=== PATIENT | female | born 1950 | race African-American/Black ===

== ENCOUNTER 2018-05-09 09:40 | Day surgery (SDC) | payer MEDICARE, OTHER ==
[2018-05-08 14:02] VITALS: BMI 36.6
[~2018-05-09 09:40] MED LIST: ACETAMINOPHEN 325 MG TABLET (FP) PO PRN; CIPROFLOXACIN HCL 0.3% OPHTH 2.5ML BOTTLE OP SCH; EPINEPHrine/PF 1 MG/1 ML (1:1,000) AMPULE SQ ONE; TRYPAN BLUE 0.5 ML DISP.SYRIN IO ONE
[2018-05-09] MEDS ORDERED: OFLOXACIN 0.3% OPHTHALMIC SOLUTION 5 ML BOTTLE ONE (09:43)
[2018-05-09] MEDS ORDERED: FLURBIPROFEN 0.03% OPHTH SOLN 2.5 ML BOTTLE ONE (09:43)
[2018-05-09] MEDS ORDERED: CYCLOPENTOLATE HCL 1% OPHTH SOLN 2 ML BOTTLE ONE (09:43)
[2018-05-09] MEDS ORDERED: TROPICAMIDE 1% OPHTH SOLN 15 ML BOTTLE ONE (09:44)
[2018-05-09] MEDS ORDERED: PHENYLEPHRINE 2.5% OPHTH SOLN 15 ML BOTTLE ONE (09:44)
[2018-05-09] MEDS: FLURBIPROFEN 0.03% OPHTH SOLN 2.5 ML BOTTLE OP SCH ×3 (10:00→10:10)
[2018-05-09] MEDS: PHENYLEPHRINE 2.5% OPHTH SOLN 15 ML BOTTLE OP SCH ×3 (10:00→10:10)
[2018-05-09] MEDS: CYCLOPENTOLATE HCL 1% OPHTH SOLN 2 ML BOTTLE OP SCH ×3 (10:00→10:10)
[2018-05-09] MEDS: OFLOXACIN 0.3% OPHTHALMIC SOLUTION 5 ML BOTTLE OP SCH ×3 (10:00→10:10)
[2018-05-09] MEDS: TROPICAMIDE 1% OPHTH SOLN 15 ML BOTTLE OP SCH ×3 (10:00→10:10)
[2018-05-09] MEDS ORDERED: MIDAZOLAM HCL 2 MG/2 ML SINGLE DOSE VIAL ONE (10:37)
[2018-05-09] MEDS ORDERED: TETRACAINE 0.5% OPHTH SOLN 2 ML BOTTLE TP ONE (11:00)
[2018-05-09] MEDS ORDERED: LIDOCAINE HCL 1% PRESERVATIVE FREE - 30ML VIAL IO ONE (11:09)
[2018-05-09] MEDS ORDERED: CHONDROITIN SU A/HYALUR SOD 1 KIT IO ONE (11:10)
[2018-05-09] MEDS ORDERED: EPINEPHrine/PF 1 MG/1 ML (1:1,000) AMPULE SQ ONE (11:15)
[2018-05-09] MEDS ORDERED: CHONDROITIN SU A/HYALUR SOD 1 KIT ONE (11:39)
[2018-05-09] MEDS ORDERED: ACETAMINOPHEN 325 MG TABLET (FP) ONE (11:45)
--- NOTE | 2018-05-09 11:47 | SPEC ---
DATE OF SURGERY: 05/09/2018 OPERATION: Phacoemulsification with posterior chamber intraocular lens implantation, right eye. Lens used [id number], 23.0 Diopter power, Serial No. [id number]. PREOPERATIVE DIAGNOSIS: Cataract, right eye. POSTOPERATIVE DIAGNOSIS: Cataract, right eye. SURGEON: Cindi Cho M.D. ANESTHESIA: Topical MAC. COMPLICATIONS: None. PROCEDURE: The patient was brought to the operating room and correctly identified along with the operative site and the correct intraocular lens donaldson. The patient was then prepped and draped in the usual sterile fashion including 5% Betadine solution in the conjunctival sac and an eyelid drape. An eyelid speculum was then placed in the eye. A paracentesis port was created and approximately 0.5 mL of preservative free Lidocaine was then injected into the eye. Viscoelastic was then injected to inflate the anterior chamber. A temporal clear corneal wound was created. A continuous circular capsulorrhexis was performed. The nucleus was then hydrodissected with BSS and removed with phacoemulsification. The remaining cortical material was irrigated and aspirated. Viscoelastic was injected to inflate the capsular bag and the intraocular lens was then implanted into the capsular bag. The remaining Viscoelastic was irrigated and aspirated from the eye. The IOL was noted to be well centered and completely covered by the anterior capsulorrhexis. Topical vancomycin was placed and the eye patched and shielded. All wounds were tested and found to be watertight. No suture was placed. The eye was then shielded. The patient was then discharged from the operating room in stable condition. CINDI CHO M.D. [id number]
[2018-05-09 12:02] VITALS: TEMP 98.2
[2018-05-09 12:29] VITALS: BP 140/67; PULSE 62
== END 2018-05-09 12:35 | disposition home or self-care (01) ==
LOC: JASU-SURG 09:40
PROVIDERS: ATTEND Ophthalmology
PROC: 08RJ3JZ Replacement of Right Lens with Synthetic Substitute, Percutaneous Approach (ICD-10-PCS; principal; 2018-05-09 11:00)
DX: H26.9 Unspecified cataract (principal)

== ENCOUNTER 2018-05-23 09:30 | Day surgery (SDC) | payer MEDICARE ==
[2018-05-22 14:31] VITALS: BMI 36.6
[~2018-05-23 09:30] MED LIST changes: -CIPROFLOXACIN HCL 0.3% OPHTH 2.5ML BOTTLE OP SCH; -EPINEPHrine/PF 1 MG/1 ML (1:1,000) AMPULE SQ ONE; -TRYPAN BLUE 0.5 ML DISP.SYRIN IO ONE
[2018-05-23] MEDS ORDERED: CYCLOPENTOLATE HCL 1% OPHTH SOLN 2 ML BOTTLE ONE (09:58)
[2018-05-23] MEDS ORDERED: FLURBIPROFEN 0.03% OPHTH SOLN 2.5 ML BOTTLE ONE (09:58)
[2018-05-23] MEDS ORDERED: OFLOXACIN 0.3% OPHTHALMIC SOLUTION 5 ML BOTTLE ONE (09:58)
[2018-05-23] MEDS ORDERED: TROPICAMIDE 1% OPHTH SOLN 15 ML BOTTLE ONE (09:59)
[2018-05-23] MEDS ORDERED: PHENYLEPHRINE 2.5% OPHTH SOLN 15 ML BOTTLE ONE (09:59)
[2018-05-23] MEDS: CYCLOPENTOLATE HCL 1% OPHTH SOLN 2 ML BOTTLE OP SCH ×3 (10:00→10:31)
[2018-05-23] MEDS: FLURBIPROFEN 0.03% OPHTH SOLN 2.5 ML BOTTLE OP SCH ×3 (10:00→10:31)
[2018-05-23] MEDS: TROPICAMIDE 1% OPHTH SOLN 15 ML BOTTLE OP SCH ×3 (10:00→10:31)
[2018-05-23] MEDS: OFLOXACIN 0.3% OPHTHALMIC SOLUTION 5 ML BOTTLE OP SCH ×3 (10:00→10:31)
[2018-05-23] MEDS: PHENYLEPHRINE 2.5% OPHTH SOLN 15 ML BOTTLE OP SCH ×3 (10:00→10:31)
[2018-05-23] MEDS ORDERED: MIDAZOLAM HCL 2 MG/2 ML SINGLE DOSE VIAL ONE (11:02)
[2018-05-23] MEDS ORDERED: TETRACAINE 0.5% OPHTH SOLN 2 ML BOTTLE TP ONE (11:06)
[2018-05-23] MEDS ORDERED: LIDOCAINE HCL 1% PRESERVATIVE FREE - 30ML VIAL IO ONE (11:16)
[2018-05-23] MEDS ORDERED: CHONDROITIN SU A/HYALUR SOD 1 KIT IO ONE (11:17)
[2018-05-23] MEDS ORDERED: EPINEPHrine/PF 1 MG/1 ML (1:1,000) AMPULE SQ ONE (11:22)
[2018-05-23] MEDS ORDERED: CHONDROITIN SU A/HYALUR SOD 1 KIT ONE (12:05)
--- NOTE | 2018-05-23 12:05 | SPEC ---
DATE OF OPERATION: DATE OF DICTATION: 05/23/2018 PREOPERATIVE DIAGNOSIS: Cataract, left eye. POSTOPERATIVE DIAGNOSIS: Cataract, left eye. OPERATION: Phacoemulsification of left cataract with posterior chamber intraocular lens implantation, the lens used SN60WF, 22.5-diopter power, serial number [id number]. SURGEON: Cindi Cho MD ANESTHESIA: Topical, MAC. COMPLICATIONS: None. PROCEDURE: The patient was brought to the operating room and correctly identified along with the operative site and the correct intraocular lens donaldson. The patient was then prepped and draped in the usual sterile fashion including 5% Betadine solution in the conjunctival sac and an eyelid drape. An eyelid speculum was then placed in the eye. A paracentesis port was created and approximately 0.5 mL of preservative-free lidocaine was then injected into the eye. Viscoelastic was then injected to inflate the anterior chamber. A temporal clear corneal wound was created. A continuous circular capsulorrhexis was performed. The nucleus was then hydrodissected with BSS and removed with phacoemulsification. The remaining cortical material was irrigated and aspirated. Viscoelastic was injected to inflate the capsular bag and the intraocular lens was then implanted into the capsular bag. The remaining viscoelastic was irrigated and aspirated from the eye. The IOL was noted to be well centered and completely covered by the anterior capsulorrhexis. Topical vancomycin was placed and the eye patched and shielded. All wounds were tested and found to be watertight. No suture was placed. The eye was then shielded. The patient was then discharged from the operating room in stable condition. CINDI CHO M.D. [id number]
[2018-05-23 12:25] VITALS: BP 143/70; TEMP 98.2
[2018-05-23 12:43] VITALS: PULSE 65
== END 2018-05-23 12:45 | disposition home or self-care (01) ==
LOC: JASU-SURG 09:30
PROVIDERS: ATTEND Ophthalmology
PROC: 08RK3JZ Replacement of Left Lens with Synthetic Substitute, Percutaneous Approach (ICD-10-PCS; principal; 2018-05-23 11:00)
DX: H26.9 Unspecified cataract (principal)

== ENCOUNTER 2025-04-21 12:06 | Emergency (ER) | payer OTHER ==
[2025-04-21 12:16] VITALS: RESP 17; TEMP 98.6; BMI 28.5
[2025-04-21 13:19] LABS: ABSOLUTE IMMATURE GRANULOCYTES 0.04 x10^3/uL (0.0-0.031); BASOPHILS # 0.08 x10^3/uL (0.01-0.08); EOSINOPHIL % 3.7 % (0.7-5.8); EOSINOPHILS # 0.38 x10^3/uL (0.04-0.36); HEMATOCRIT 29.7 % (34.1-44.9); MCHC 33.7 g/dl (32.2-35.5); MEAN CELL VOLUME 89.2 fl (79.4-94.8); MEAN PLT VOLUME 9.9 fl (9.4-12.3); MONOCYTE # 1.16 x10^3/uL (0.24-0.86); MONOCYTE % 11.3 % (4.7-12.5); PLATELET COUNT 498 x10^3/uL (182-369); RDW 13.4 % (12.4-16.6)
[2025-04-21 13:31] LABS: URINE APPEARANCE CLEAR; URINE BILIRUBIN NEGATIVE (NEGATIVE); URINE COLOR YELLOW; URINE GLUCOSE (UA) NEGATIVE (NEGATIVE); URINE KETONE NEGATIVE (NEGATIVE); URINE LEUK ESTERASE NEGATIVE (NEGATIVE); URINE NITRITE NEGATIVE (NEGATIVE); URINE PROTEIN NEGATIVE (NEGATIVE); URINE UROBILINOGEN 0.2 mg/dL (0.2-1.0)
[2025-04-21 13:37] LABS: POTASSIUM 4.5 mmol/L (3.5-5.1)
[2025-04-21 13:39] LABS: CALCIUM 9.8 mg/dL (8.5-10.1)
[2025-04-21 13:40] LABS: ALBUMIN 3.4 g/dl (3.4-5.0); BLOOD UREA NITROGEN 38.9 mg/dL (7-18)
[2025-04-21 13:43] LABS: CREATININE 3.1 mg/dL (0.55-1.3)
[2025-04-21 13:44] LABS: MAGNESIUM 2.2 mg/dL (1.8-2.4); PHOSPHOROUS 4.4 mg/dL (2.5-4.9)
[2025-04-21 13:45] LABS: BILIRUBIN,TOTAL 0.3 mg/dL (0.2-1)
[2025-04-21 16:17] VITALS: BP 124/71; PULSE 62
[2025-04-21 17:04] LABS: HCV DIAGNOSTIC IN-HOUSE W/RFLX NON-REACTIVE (NONREACTIVE)
[2025-04-21 17:05] LABS: HIV INTERPRETATION NEGATIVE (NEGATIVE)
== END 2025-04-21 16:17 | disposition home or self-care (01) ==
LOC: JER 12:06
DX: N17.9 Acute kidney failure, unspecified (principal); R94.4 Abnormal results of kidney function studies
CPT/HCPCS: 36415; 76775-TC; 80053; 81003; 83735; 84100; 85025; 86803; 87086; 87389; 99284-25